=== PATIENT | male | born 1970 | race Caucasian/White ===

== ENCOUNTER → 2020-07-01 10:42 | Outpatient (BNVA) | payer SELFPAY | PROVIDERS: Family Provider Nurse Practitioner; PCP Nurse Practitioner; Visit Provider Family Medicine Adult Medicine | DX: E03.9 Hypothyroidism, unspecified (principal); K21.9 Gastro-esophageal reflux disease without esophagitis; I10 Essential (primary) hypertension; F41.1 Generalized anxiety disorder; Z12.11 Encounter for screening for malignant neoplasm of colon | CPT/HCPCS: 80053; 80061; 82272; 84443; 85025 ==

== ENCOUNTER 2021-01-27 10:23 | Outpatient (CLI) | payer OTHER, SELFPAY ==
--- NOTE | 2021-01-27 10:45 | XR_ITS ---
WS: [id number] LUMBAR SPINE: 3 VIEWS TECHNIQUE: AP, lateral and L5-S1 spot. HISTORY: Low back pain COMPARISON: 10/12/2016 L4 anterolisthesis by 2 mm. No fracture. Severe arthritis at the facet joints bilaterally at L4-5 and L5-S1. Partial sacralization of L5 on the RIGHT. No loss of disc space or vertebral body height. SI joints are symmetric bilaterally. No soft tissue abnormalities. XR/XR lumbar spine 2-3V* [id number] IMPRESSION: 1. 2 mm anterolisthesis of L4 is new since 2017. 2. Severe bilateral facet joint arthritis L4-5 and L5-S1 has progressed since 2017.
== END 2021-01-27 10:24 | disposition home or self-care (01) ==
PROVIDERS: PCP Family Medicine Adult Medicine; Visit Provider Family Medicine Adult Medicine
DX: M54.5 Low back pain (principal); M47.816 Spondylosis without myelopathy or radiculopathy, lumbar region; M47.817 Spondylosis without myelopathy or radiculopathy, lumbosacral region
CPT/HCPCS: 72100

== ENCOUNTER → 2021-02-06 08:25 | Outpatient (BNVA) | payer OTHER, SELFPAY | PROVIDERS: PCP Family Medicine Adult Medicine; Referring Provider Family Medicine Adult Medicine; Visit Provider Orthopaedic Surgery | DX: M54.41 Lumbago with sciatica, right side (principal); M54.42 Lumbago with sciatica, left side; G89.29 Other chronic pain; M48.061 Spinal stenosis, lumbar region without neurogenic claudication | CPT/HCPCS: 72120 ==

== ENCOUNTER 2021-03-04 14:54 | Outpatient (CLI) | payer OTHER, SELFPAY ==
--- NOTE | 2021-03-04 15:15 | MR_ITS ---
WS: [id number] MRI LUMBAR SPINE NONCONTRAST TECHNIQUE: Sagittal T1, T2 and STIR imaging. Axial T1 and T2 imaging. CLINICAL INFORMATION: M48.061 - Spinal stenosis, lumbar region without neurogen... COMPARISON: MRI FINDINGS: Mild lumbar curve. No acute compression. No high-grade central canal stenosis. S1 is lumbarized. L1-L2: Mild annular bulging. Spinal canal and foramen are patent. L2-L3: Mild annular bulging with slight effacement of ventral thecal sac. Mild facet arthropathy. Spi nal canal and foramen are patent. L3-L4: Mild annular bulging with slight effacement of the ventral thecal sac. Slight narrowing of the right subarticular recess. Mild right and no significant left foraminal narrowing. Mild facet arthro mai. L4-L5: Mild annular bulging with slight effacement of the ventral thecal sac. Moderate facet arthropa thy ligamentum flavum hypertrophy. Mild right and no significant left foraminal narrowing. L5-S1: Mild annular bulging. Moderate facet arthropathy. Slight effacement of ventral thecal sac. Mil d right and no significant left foraminal narrowing. S1-S2: Mild disc bulging with osteophytic ridging. Right eccentric annular tear. Mild facet arthropat hy. Spinal canal and foramen are patent. S1 is lumbarized Disc space narrowing at L5-S1 has progressed slightly compared to previous. No other significant billings ges compared to 2017. MR/MR lumbar spine wo con* [id number] IMPRESSION: 1. S1 is lumbarized. Recommend plain film correlation prior to surgical interv ention. 2. No significant central canal stenosis. 3. Mild annular bulging L4-5 with slight narrowing of the right subarticular r ecess and mild right L4-5 foraminal narrowing. 4. Right eccentric disc bulge L5-S1 with mild right L5-S1 foraminal narrowing. 5. Mild right L3-4 foraminal narrowing. 6. Moderate facet arthropathy L4-L5 and L5-S1.
== END 2021-03-04 14:55 | disposition home or self-care (01) ==
PROVIDERS: PCP Family Medicine Adult Medicine; Visit Provider Orthopaedic Surgery
DX: M48.061 Spinal stenosis, lumbar region without neurogenic claudication (principal); M47.816 Spondylosis without myelopathy or radiculopathy, lumbar region; M47.817 Spondylosis without myelopathy or radiculopathy, lumbosacral region; Q76.49 Other congenital malformations of spine, not associated with scoliosis
CPT/HCPCS: 72148

== ENCOUNTER 2021-03-23 20:47 | Emergency (ER) | payer OTHER, SELFPAY ==
[2021-03-23 21:49] VITALS: BP 158/89; PULSE 88; RESP 20; TEMP 36.6; O2SAT 98; BMI 33.3
[2021-03-23 22:15] LABS: Rapid Strep A Test Negative (Negative)
[2021-03-23 22:25] LABS: SARS Covid-2 Antigen Negative (Negative)
--- NOTE | 2021-03-24 01:36 | ED_ITS ---
HPI - General Adult General: Chief complaint: General Medical Stated complaint: SCRATCHY THROAT, COUGH Time Seen by Provider: 03/24/21 01:36 History of Present Illness: HPI narrative: Patient is a 50-year-old male who comes to the ED with sore throat and cough. Symptoms started approximately 3 days ago. He reports having a lot of nasal congestion and drainage and sinus pain. Denies any fevers, nausea/vomiting, bladder or bowel symptoms. Associated symptoms: Deny chest pain, dyspnea, headache(s), nausea, rash, palpitations or vomiting Review of Systems Const: Denies: fever(s), chills or fatigue Eyes: Denies: change in vision or eye discomfort ENMT: Reports: throat pain, nasal discharge, nasal congestion and sinus pain (Maxillary sinus pain); Denies: odynophagia Card: Denies: chest pain, palpitations, edema, swelling of feet/ankles, dyspnea on exertion or orthopnea Resp: Reports: non-productive cough; Denies: dyspnea or productive cough GI: Denies: abdominal pain, nausea, vomiting, diarrhea, constipation or hematochezia : Denies: flank pain, difficulty urinating, dysuria or hematuria Musc: Denies: neck pain, back pain or extremity swelling Skin/Breast: Denies: rash or new lesions Neuro: Denies: headache(s), numbness in extremities or weakness in extremities PFSH ED PFSH: Medical History Chronic low back pain with bilateral sciatica Colon cancer screening GERD (gastroesophageal reflux disease) HTN (hypertension), benign Hx of fracture of fibula Hx of fracture of tibia Hypothyroidism Obesity (BMI 30.0-34.9) Osteoarthritis involving multiple joints on both sides of body Family History Other Cancer Social History Smoking and tobacco status: former smoker Quit status (tobacco): has quit using tobacco Year quit tobacco: 15 yrs Second hand smoke exposure: No Smoking risk assessment/counseling performed?: No Alcohol intake: never Current occupational status: employed Physical Exam Const: COMMON NORMALS: no acute distress, patient oriented x3 and alert GENERAL APPEARANCE: cooperative and comfortable HENMT: COMMON NORMALS: normocephalic HEAD & SCALP: normocephalic FACE & SINUS: sinus tenderness frontal (Bilateral tenderness) and maxillary (Bilateral tenderness) MOUTH: Normal oral and palatal mucosa present THROAT: posterior oropharynx normal and uvula midline Neck/C-Spine: COMMON NORMALS: supple GENERAL: Yes normal visual inspection Resp: COMMON NORMALS: normal respiratory effort, No retractions, No use of accessory muscles and clear to auscultation bilaterally AUSCULTATION: clear to auscultation bilaterally Cardio: COMMON NORMALS: regular rate, regular rhythm, S1 normal heart sound present, S2 normal heart sound present, No gallops present (Cardio), No clicks present (Cardio), No murmurs present (Cardio) and Peripheral pulses 2+ throughout RATE: regular rate RHYTHM: regular rhythm HEART SOUNDS: S1 normal heart sound present and S2 normal heart sound present PERIPHERAL PULSES: Peripheral pulses 2+ throughout GI: COMMON NORMALS: Normal to inspection, nondistended, normoactive bowel sounds present, Soft to palpation, non-tender and no masses PALPATION: Yes Soft to palpation : COMMON NORMALS: Yes no CVA tenderness BLADDER/KIDNEY EXAM: Yes no CVA tenderness Back/Pelvis: COMMON NORMALS: no CVA tenderness Extremity: COMMON NORMALS: normal to inspection Neuro: COMMON NORMALS: patient oriented x3 and moves all extremities SENSORIUM/ORIENTATION: Yes alert Skin: GENERAL SKIN EXAM: dry skin Course Vital Signs: Vital signs: Vital Signs Temperature 98 F 03/23/21 21:49 Pulse Rate 88 03/24/21 02:46 Respiratory Rate 18 03/24/21 02:46 Blood Pressure 150/90 03/24/21 02:46 Pulse Oximetry 99 03/24/21 02:46 MDM - General Adult MDM Narrative: Medical decision making narrative: Patient is a 50-year-old male comes to the ED with cough, sore throat, sinus drainage, pain and nasal drainage and congestion. Patient appears nontoxic and is in no acute distress or pain. Vitals are stable. Patient has bilateral maxillary, frontal tenderness. Lungs are clear to auscultation bilaterally. Chest x-ray shows no acute findings. Strep negative and COVID-19 negative. Patient diagnosed with sinusitis discharged home with a prescription for Medrol Dosepak, amoxicillin and Afrin nasal spray. He was told to follow-up with his PCP in 7 to 10 days for reevaluation. Return to ED precautions given. Patient understood and agreed with plan. Lab Data: Attestation: I reviewed the patient's lab results. Labs: Lab Results 03/23/21 03/23/21 Range/Units 21:58 21:58 SARS-CoV-2 Ag (Rap id) Negative (Negative) Group A Strep Rapi d Negative (Negative) Imaging Data^: CXR: Attestation: I personally reviewed and interpreted this imaging study as follows: Radiologist's impression: [address] [address]HCvy ReportSigned Patient: Sancho Fernandez SrUnit #: [id number]: 1970Ac ct#:[id number]/Sex: 50 / MADM Date: 03/23/21Loc: ERRoom/Bed:Attending Dr: Ordering Provider/Ordering MD: Franco Cherry Date of Service: 03/24/21 Procedure(s): XR chest 1V portable [id number] Accession Number(s): [id number] Report Number: [id number] PROCEDURE INFORMATION: Exam: XR Chest Exam date and time: 03/24/2021 1:38 AM Age: 50 years old Clinical indication: Cough TECHNIQUE: Imaging protocol: XR of the chest. Views: 1 view. COMPARISON: CR Chest 1 [place] [id number] 07/03/2019 9:47 AM FINDINGS: Lungs: Unremarkable. No consolidation. Pleural spaces: Unremarkable. No pleural effusion. No pneumothorax. Heart/Mediastinum: Unremarkable. No cardiomegaly. Bones/joints: Unremarkable. XR/XR chest 1V portable [id number] IMPRESSION: No significant abnormality. Dictated By:Gita Goodman By:Gita Goodman Date/Time:03/24/21813DD/ 1 Discharge Plan Discharge Patient Disposition: Home Clinical Impression: Sinusitis Qualifiers: Sinusitis location: maxillary Chronicity: acute Recurrence: non-recurrent Qualified Code(s): J01.00 - Acute maxillary sinusitis, unspecified Condition: Stable Prescriptions: New amoxicillin 500 mg tablet 500 mg PO BID 10 Days Qty: 20 RF: 0 Medrol (Vasu) 4 mg tablets,dose pack See Rx Instructions .ROUTE .COMPLEX Qty: 21 RF: 0 Afrin (oxymetazoline) 0.05 % mist 2 spray intranasal BID PRN (Reason: nasal congestion) 3 Days Qty: 15 RF: 0 No Action omeprazole 20 mg tablet,delayed release (DR/EC) 20 mg PO DAILY Qty: 30 RF: 5 sildenafil 25 mg tablet 25 mg PO DAILY PRN (Reason: sexual activity) Qty: 2 RF: 0 bupropion HCl [Wellbutrin XL] 150 mg tablet extended release 24 hr 150 mg PO QAM Qty: 30 RF: 2 hydrochlorothiazide 25 mg tablet 25 mg PO QAM Qty: 30 RF: 5 levothyroxine [Levo-T] 137 mcg tablet 137 mcg PO DAILY Qty: 30 RF: 11 prednisone 20 mg tablet 20 mg PO DAILY Qty: 15 RF: 0 diphenhydramine-acetaminophen [Tylenol PM Extra Strength] 25-500 mg tablet 2 tab PO .HS PRNRF: 0 acetaminophen [Tylenol Extra Strength] 500 mg tablet 1,000 mg PO .bedtime RF: 0 multivitamin [Multiple Vitamins] Tablet 1 tab PO QAM RF: 0 Discharge Orders: Discharge ED (Routine); Ordered 03/24/21 Ordered By: Franco Cherry Referrals: Jerardo Hutchison MD [Primary Care Provider] - Discharge Diet: Regular Discharge Activity: Increase activity as tolerated Patient Instructions: Sinusitis (ED) Activity Restrictions/Additional Instructions: Follow-up with medical provider as directed in 7 to 10 days reevaluation. Take medications as prescribed. Return to the ER or your medical provider if condition worsens. Please read and understand discharge instructions. Thank you for choosing [facility] for your healthcare needs today. Please realize this is an emergency room and that we are providing you with a medical screening exam and this may not be complete and all inclusive of all the testing and or work up that you may need to determine your ailment or severity of your illness. It is very important that you follow up as instructed or that you return to the Emergency Department should you have concerns or if your condition changes or worsens in any way. 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
--- NOTE | 2021-03-24 01:38 | XRR_ITS ---
PROCEDURE INFORMATION: Exam: XR Chest Exam date and time: 03/24/2021 1:38 AM Age: 50 years old Clinical indication: Cough TECHNIQUE: Imaging protocol: XR of the chest. Views: 1 view. COMPARISON: CR Chest 1 [place] [id number] 07/03/2019 9:47 AM FINDINGS: Lungs: Unremarkable. No consolidation. Pleural spaces: Unremarkable. No pleural effusion. No pneumothorax. Heart/Mediastinum: Unremarkable. No cardiomegaly. Bones/joints: Unremarkable. XR/XR chest 1V portable [id number] IMPRESSION: No significant abnormality.
[2021-03-24 02:46] VITALS: BP 150/90; PULSE 88; RESP 18; O2SAT 99
== END 2021-03-24 02:35 | disposition home or self-care (01) ==
PROVIDERS: Emergency Medicine; Emergency Provider Physician Assistant; PCP Family Medicine Adult Medicine
DX: J01.00 Acute maxillary sinusitis, unspecified (principal); Z87.891 Personal history of nicotine dependence
CPT/HCPCS: 71045; 87081; 87426; 87880; 99282

== ENCOUNTER → 2021-03-31 10:04 | Outpatient (BNVA) | payer OTHER, SELFPAY | PROVIDERS: PCP Family Medicine Adult Medicine; Referring Provider Orthopaedic Surgery; Visit Provider Anesthesiology Pain Medicine | DX: G89.29 Other chronic pain (principal); M54.41 Lumbago with sciatica, right side; M54.42 Lumbago with sciatica, left side; M47.816 Spondylosis without myelopathy or radiculopathy, lumbar region; M51.36 Other intervertebral disc degeneration, lumbar region; M79.605 Pain in left leg; M79.673 Pain in unspecified foot; Z87.891 Personal history of nicotine dependence | CPT/HCPCS: 87491; 87591; 87661; 99204 ==

== ENCOUNTER → 2021-04-14 13:47 | Outpatient (BNVA) | payer OTHER, SELFPAY | PROVIDERS: PCP Family Medicine Adult Medicine; Visit Provider Anesthesiology Pain Medicine | DX: G89.29 Other chronic pain (principal); M47.816 Spondylosis without myelopathy or radiculopathy, lumbar region; M54.41 Lumbago with sciatica, right side; M54.42 Lumbago with sciatica, left side; Z87.891 Personal history of nicotine dependence | CPT/HCPCS: 64493; 64494; 64495; J3490 ==

== ENCOUNTER → 2021-04-21 11:24 | Outpatient (BNVA) | payer OTHER, SELFPAY | PROVIDERS: PCP Family Medicine Adult Medicine; Visit Provider Family Medicine Adult Medicine | DX: Z00.00 Encounter for general adult medical examination without abnormal findings (principal); E03.9 Hypothyroidism, unspecified; I10 Essential (primary) hypertension; E66.9 Obesity, unspecified; J44.9 Chronic obstructive pulmonary disease, unspecified; J45.909 Unspecified asthma, uncomplicated; F41.1 Generalized anxiety disorder; F33.1 Major depressive disorder, recurrent, moderate; K21.9 Gastro-esophageal reflux disease without esophagitis; M15.9 Polyosteoarthritis, unspecified; D75.1 Secondary polycythemia; R73.03 Prediabetes | CPT/HCPCS: 80053; 83036; 84153; 84443; 85025 ==

== ENCOUNTER → 2021-04-30 08:38 | Outpatient (BNVA) | payer OTHER, SELFPAY | PROVIDERS: PCP Family Medicine Adult Medicine; Visit Provider Anesthesiology Pain Medicine | DX: G89.29 Other chronic pain (principal); M54.41 Lumbago with sciatica, right side; M54.42 Lumbago with sciatica, left side; M47.816 Spondylosis without myelopathy or radiculopathy, lumbar region; M51.36 Other intervertebral disc degeneration, lumbar region; M79.605 Pain in left leg; M79.672 Pain in left foot | CPT/HCPCS: 82668; 83550; 85025; 99214 ==

== ENCOUNTER 2021-05-09 12:50 | Outpatient (CLI) | payer OTHER, SELFPAY ==
--- NOTE | 2021-05-09 13:00 | XR_ITS ---
WS: [id number] Exam: XR chest 2V* [id number] Date/Time of Exam: 05/09/2021 12:53 PM Reason For Exam: SOB Comparison 03/24/2021 Findings: The lungs are clear and fully expanded. Costophrenic angles are sharp. No infiltrates. Bronchovascula r relief appears normal. Cardiac silhouette is unremarkable. Bony elements are intact. XR/XR chest 2V* [id number] IMPRESSION: Unremarkable chest radiograph.
== END 2021-05-09 12:51 | disposition home or self-care (01) ==
PROVIDERS: PCP Family Medicine Adult Medicine; Visit Provider Family Medicine Adult Medicine
DX: R06.02 Shortness of breath (principal)
CPT/HCPCS: 71046

== ENCOUNTER 2021-05-24 17:05 | Emergency (ER) | payer OTHER, SELFPAY ==
[2021-05-24 17:10] VITALS: BP 156/102; PULSE 96; RESP 18; TEMP 36.3; O2SAT 97; BMI 33.3
[2021-05-24 17:16] VITALS: O2SAT 97
--- NOTE | 2021-05-24 17:42 | W.ED.COVID ---
HPI - COVID General: Chief Complaint: COVID symptoms Stated Complaint: H/A: COVID EXPOSURE Time Seen by Provider: 05/24/21 17:20 Triage information: No fever, cough or shortness of breath. Exposure to COVID + person last 14 days History of Present Illness: HPI Narrative: 80-year-old male presents emergency room with complaint of cough headache some mild nausea and myalgias. He was exposed to Covid from a family member within the last week. He has not had any shortness of breath or diarrhea no anosmia. MD complaint: reported COVID exposure Prior covid testing: no COVID 19 common symptoms: positive cough, non-productive cough, fatigue, body aches, throat pain and nasal congestion; negative nausea, vomiting or diarrhea COVID 19 other sytmptoms: negative chest pain or requiring oxygen Onset (ago): hour(s) Severity: mild Pertinent comorbid conditions: obesity Treatment prior to arrival: none COVID Results: SARS-CoV-2 Antigen (Rapid) Negative (Negative) 03/23/21 21:58 03/23/21 Review of Systems Const: Reports: body aches and fatigue ENMT: Reports: throat pain and nasal congestion Card: Denies: chest pain, edema, dyspnea on exertion or orthopnea Resp: Reports: non-productive cough GI: Denies: abdominal pain, nausea, vomiting, hematemesis, coffee ground emesis, diarrhea, constipation, bloating, hematochezia or melena : Denies: flank pain, dysuria, urinary frequency or urinary urgency Skin/Breast: Denies: rash or pruritus [facility] ED PFSH: Medical History Chronic dyspnea Chronic low back pain with bilateral sciatica Colon cancer screening Elevated red blood cell count GERD (gastroesophageal reflux disease) Hemochromatosis HTN (hypertension), benign Hx of fracture of fibula Hx of fracture of tibia Hypothyroidism Obesity (BMI 30.0-34.9) Osteoarthritis involving multiple joints on both sides of body Polycythemia Pre-diabetes Reactive airway disease Well adult exam Family History Other Cancer Social History Quit status (tobacco): has quit using tobacco Year quit tobacco: 15 yrs Second hand smoke exposure: No Smoking risk assessment/counseling performed?: No Alcohol intake: never Current occupational status: employed History of recent travel: No Physical Exam Const: COMMON NORMALS: no acute distress GENERAL APPEARANCE: cooperative and comfortable ORIENTATION/CONSCIOUSNESS: Yes awake, Yes oriented to person, Yes oriented to place and Yes oriented to time HENMT: COMMON NORMALS: normocephalic, atraumatic and hearing grossly normal bilaterally HEAD & SCALP: normocephalic and atraumatic Neck/C-Spine: COMMON NORMALS: no JVD Resp: COMMON NORMALS: normal respiratory effort, No retractions, No use of accessory muscles and clear to auscultation bilaterally AUSCULTATION: clear to auscultation bilaterally Cardio: COMMON NORMALS: no JVD, regular rate, regular rhythm and No murmurs present (Cardio) RATE: regular rate RHYTHM: regular rhythm GI: COMMON NORMALS: Soft to palpation and No hepatosplenomegaly present AUSCULTATION: Yes normoactive bowel sounds PALPATION: Yes Soft to palpation, No Tenderness to palpation present (GI), No Guarding due to palpation present (GI) and Yes No hepatosplenomegaly present Extremity: COMMON NORMALS: normal to inspection, capillary refill normal, no clubbing, cyanosis or edema, no calf tenderness and no pedal edema Neuro: SENSORIUM/ORIENTATION: Yes oriented to person, Yes oriented to place and Yes oriented to time Skin: COMMON NORMALS: no rashes or lesions noted GENERAL SKIN EXAM: no rashes or lesions noted Course Vital Signs: Vital signs: Vital Signs Temperature 97.4 F L 05/24/21 17:10 Pulse Rate 96 05/24/21 17:10 Respiratory Rate 18 05/24/21 17:10 Blood Pressure 156/102 05/24/21 17:10 Pulse Oximetry 97 05/24/21 17:10 MDM - COVID MDM Narrative: Medical decision making narrative: Patient has very mild symptoms no sign of hypoxia we will get a Covid PCR test recommend remain self quarantine until results are available. COVID Results: SARS-CoV-2 Antigen (Rapid) Negative (Negative) 03/23/21 21:58 03/23/21 Discharge Plan Discharge Patient Disposition: Home Clinical Impression: Cough Condition: Stable Prescriptions: No Action levothyroxine [Levo-T] 137 mcg tablet 137 mcg PO DAILY Qty: 30 RF: 11 diphenhydramine-acetaminophen [Tylenol PM Extra Strength] 25-500 mg tablet 2 tab PO .HS PRNRF: 0 acetaminophen [Tylenol Extra Strength] 500 mg tablet 1,000 mg PO .bedtime RF: 0 multivitamin [Multiple Vitamins] Tablet 1 tab PO QAM RF: 0 albuterol sulfate 90 mcg/actuation HFA aerosol inhaler 2 puff inhalation Q6H PRN (Reason: shortness of breath or wheezing) Qty: 8.5 RF: 5 bupropion HCl [Wellbutrin XL] 150 mg tablet extended release 24 hr 150 mg PO QAM Qty: 30 RF: 5 hydrochlorothiazide 25 mg tablet 25 mg PO QAM Qty: 30 RF: 5 omeprazole 20 mg tablet,delayed release (DR/EC) 20 mg PO DAILY Qty: 30 RF: 5 tizanidine 4 mg tablet 4 mg PO BID PRN (Reason: muscle spasticity) Qty: 60 RF: 0 Discharge Orders: Discharge ED (Routine); Ordered 05/24/21 Ordered By: Kirit Asher Referrals: Jerardo Hutchison MD [Primary Care Provider] - Discharge Diet: Usual diet Discharge Activity: Resume usual activity Patient Instructions: Opioid Safety Coding Level of Care Code 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
== END 2021-05-24 17:55 | disposition home or self-care (01) ==
PROVIDERS: Emergency Provider Family Medicine; PCP Family Medicine Adult Medicine
DX: R05 Cough (principal); Z20.822 Contact with and (suspected) exposure to COVID-19; I10 Essential (primary) hypertension; F17.210 Nicotine dependence, cigarettes, uncomplicated
CPT/HCPCS: 99281

== ENCOUNTER 2021-05-26 16:23 | Outpatient (CLI) | payer OTHER, SELFPAY ==
[2021-05-26 16:43] LABS: Basophils # 0.1 10^3/uL (0.0-0.1); Eosinophils # 0.6 10^3/uL (0.0-0.8); Eosinophils % 7.6 %; Hematocrit 53.9 % (42.0-52.0); Hemoglobin 18.1 g/dL (11.7-16.6); Lymphocytes # 2.5 10^3/uL (0.8-4.8); Lymphocytes % 30.4 %; Mean Corpuscular HGB Conc 33.6 g/dL (30.0-36.0); Mean Corpuscular Hemoglobin 29.6 pg (28.0-34.0); Mean Corpuscular Volume 88.2 fl (80-94); Mean Platelet Volume 8.7 fL (7.4-10.4); Monocytes # 0.9 10^3/uL (0.2-0.9); Monocytes % 10.8 %; Neutrophils # 4.16 10^3/uL (1.8-7.7); Nucleated Red Blood Cells % 0 %; Platelet Count 316 10^3/cmm (130-400); Red Blood Count 6.11 10^6/uL (4.1-5.3); Red Cell Distribution Width 13.6 % (12.1-15.1); White Blood Count 8.3 10^3/uL (4.0-10.0)
[2021-05-26 17:22] LABS: Ferritin 133 ng/mL (30-400)
[2021-05-28 13:08] LABS: Alpha 1 Antitrypsin 158 mg/dL (83-199)
[2021-05-28 17:52] LABS: Immunoglobulin E 850 kU/L (<OR=114)
[2021-05-30 19:57] LABS: Aspergillus Fumigatus, Igg Ab, 54.3 mg/L (<=102)
[2021-06-02 18:47] LABS: Alternaria Class 3; Bermuda Class 2; Cat Dander (E1) Ige 0.51 kU/L; Cat Dander Class 1; Common Ragweed (Short) (W1) Ig 4.88 kU/L; D. Farinae Class 3; Dermatophagoides Class 3; Dermatophagoides Farinae (D2) 3.85 kU/L; Dermatophagoides Pteronyssinus 5.97 kU/L; Dog Dander (E5) Ige 0.85 kU/L; Dog Dander Class 2; Elm (T8) Ige 5.04 kU/L; Elm Class 3; English Plantain (W9) Ige 2.48 kU/L; English Plantain Class 2; House Dust (Greer) (H1) Ige 1.37 kU/L; House Dust (Hollister- Stier) 1.38 kU/L; House Dust Class 2; Immunoglobulin E 747 kU/L (<OR=114); Johnson Grass (G10) Ige 2.64 kU/L; Johnson Grass Cl 2; June Grass Class 3; June Grass(Kentucky Blue) (G8) 9.51 kU/L; Lamb'S Quarters (Goose Foot) 1.67 kU/L; Lamb'S Quarters Class 2; Maple (Box Elder) (T1) Ige 1.68 kU/L; Maple Class 2; Meadow Fescue (G4) Ige 9.79 kU/L; Meadow Fescue Class 3; Mucor Racemosus Class 1; Oak (T7) Ige 2.48 kU/L; Oak Class 2; Orchard Grass (Cocksfoot) (G3) 7.61 kU/L; Penicillium Class 1; Penicillium Notatum (M1) Ige 0.58 kU/L; Perennial Rye Grass (G5) Ige 8.48 kU/L; Perennial Rye Grass Class 3; Ragweeed Class 3; Rough Marsh Elder (W16) Ige 1.44 kU/L; Rough Marsh Elder Class 2; Sweet Vernal Class 3; Sweet Vernal Grass (G1) Ige 8.16 kU/L; Timothy Grass (G6) Ige 7.48 kU/L; Timothy Grass Class 3
== END 2021-05-26 16:24 | disposition home or self-care (01) ==
LOC: LAB 16:26
PROVIDERS: PCP Family Medicine Adult Medicine; Visit Provider Internal Medicine Pulmonary Disease
DX: J45.909 Unspecified asthma, uncomplicated (principal); R06.09 Other forms of dyspnea; J44.9 Chronic obstructive pulmonary disease, unspecified
CPT/HCPCS: 36415; 82103; 82728; 82785; 85025; 86003

== ENCOUNTER 2021-07-22 08:47 | Outpatient (CLI) | payer OTHER, SELFPAY ==
--- NOTE | 2021-07-22 09:37 | XR_ITS ---
WS: [id number] HIPS BILATERAL TECHNIQUE: 4 views, AP and lateral CLINICAL INFORMATION: Bilateral hip pain COMPARISON: None. FINDINGS: Mild degenerative narrowing bilateral hips. No acute fractures. Normal anatomic alignment. Normal pub ic rami. Pelvic phleboliths.
--- NOTE | 2021-07-22 13:15 | XR_ITS ---
WS: [id number] HIPS BILATERAL TECHNIQUE: 4 views, AP and lateral CLINICAL INFORMATION: Bilateral hip pain COMPARISON: None. FINDINGS: Mild degenerative narrowing bilateral hips. No acute fractures. Normal anatomic alignment. Normal pub ic rami. Pelvic phleboliths. XR/XR hip BI 3-4V wo/w pel [id number] IMPRESSION: Mild degenerative narrowing both hips. No acute fractures. Tonnis classification LEFT: grade 2: small cysts in femoral head/acetabulum or moderate joint space narrowing or moderate loss of head sphericity Tonnis classification RIGHT: grade 2: small cysts in femoral head/acetabulum or moderate joint space narrowing or moderate loss of head sphericity
== END 2021-07-22 08:48 | disposition home or self-care (01) ==
PROVIDERS: PCP Family Medicine Adult Medicine; Visit Provider Family Medicine Adult Medicine
DX: M25.551 Pain in right hip (principal); M25.552 Pain in left hip
CPT/HCPCS: 73521; 73522

== ENCOUNTER → 2021-09-10 10:32 | Outpatient (BNVA) | payer OTHER, SELFPAY | PROVIDERS: PCP Family Medicine Adult Medicine; Visit Provider Registered Nurse Neonatal Intensive Care | DX: Z20.822 Contact with and (suspected) exposure to COVID-19 (principal) | CPT/HCPCS: 87635 ==

== ENCOUNTER 2021-09-18 07:32 | Outpatient (CLI) | payer OTHER, SELFPAY ==
[2021-09-18 08:03] VITALS: BP 152/97; PULSE 101; RESP 18; TEMP 36.7; O2SAT 96; BMI 33.3
[2021-09-18 08:16] VITALS: BP 140/99; PULSE 95; RESP 17; TEMP 36.7; O2SAT 93
[2021-09-18 09:16] VITALS: BP 139/98; PULSE 93; RESP 17; TEMP 36.8; O2SAT 95
== END 2021-09-18 07:33 | disposition home or self-care (01) ==
LOC: OPS 07:33
PROVIDERS: PCP Family Medicine Adult Medicine; Visit Provider Nurse Practitioner Family
DX: U07.1 COVID-19 (principal)
CPT/HCPCS: 96365

== ENCOUNTER → 2021-10-28 15:03 | Outpatient (BNVA) | payer MEDICAID, SELFPAY | PROVIDERS: PCP Family Medicine Adult Medicine; Referring Provider Family Medicine Adult Medicine; Visit Provider Orthopaedic Surgery | DX: M25.551 Pain in right hip (principal); M25.552 Pain in left hip | CPT/HCPCS: 73523 ==

== ENCOUNTER → 2021-11-24 10:09 | Outpatient (BNVA) | payer MEDICAID, SELFPAY | PROVIDERS: PCP Family Medicine Adult Medicine; Visit Provider Psychiatry & Neurology Psychiatry | DX: F41.1 Generalized anxiety disorder (principal); F33.1 Major depressive disorder, recurrent, moderate | CPT/HCPCS: 99214 ==

== ENCOUNTER → 2022-01-20 07:38 | Outpatient (BNVA) | payer MEDICAID, SELFPAY | PROVIDERS: PCP Family Medicine Adult Medicine; Visit Provider Family Medicine Adult Medicine | DX: E03.9 Hypothyroidism, unspecified (principal); I10 Essential (primary) hypertension; R73.03 Prediabetes; D75.1 Secondary polycythemia; E66.9 Obesity, unspecified; J44.9 Chronic obstructive pulmonary disease, unspecified; M15.9 Polyosteoarthritis, unspecified; M54.41 Lumbago with sciatica, right side; M54.42 Lumbago with sciatica, left side; G89.29 Other chronic pain | CPT/HCPCS: 80053; 83036; 84443 ==

== ENCOUNTER 2022-02-10 18:01 | Emergency (ER) | payer MEDICAID, SELFPAY ==
[2022-02-10 18:05] VITALS: BP 138/104; PULSE 124; RESP 18; TEMP 36.5; O2SAT 96; BMI 33.3
--- NOTE | 2022-02-10 18:21 | ED_ITS ---
HPI - Trauma General: Chief Complaint: Trauma Stated Complaint: fall/ R leg scrap Time Seen by Provider: 02/10/22 18:11 Source: patient Mode of arrival: ambulatory Limitations: no limitations History of Present Illness: 51-year-old male states he just got a shower and fell through his bathroom floor states he has abrasions to his right hip rates his pain a 7 out of 10 he is unsure when his last tetanus was denies any other injuries he is able ambulate without any difficulty states pain is worse with palpation improved with rest. Associated symptoms: Denies abdominal pain, back pain, chest pain, chills, dental pain, fever(s), headache(s), nausea or vomiting Review of Systems Const: Denies: fever(s), chills, body aches or change in appetite Eyes: Denies: blurry vision or eye discomfort ENMT: Denies: throat pain or dental pain Card: Denies: chest pain Resp: Denies: dyspnea GI: Denies: abdominal pain, nausea, vomiting or diarrhea : Denies: dysuria Musc: Denies: neck pain or back pain Skin/Breast: Denies: rash Neuro: Denies: headache(s) Psych: Denies: depression Jassi/Lymph: Denies: easy bruising All/Imm: Denies: urticaria PFSH ED PFSH: Medical History Chronic dyspnea Chronic low back pain with bilateral sciatica COVID-19 Positive test on 09/10/2021. Degenerative lumbar disc Ex-smoker Quit in 2008 Facet arthropathy, lumbar Gastroenteritis GERD (gastroesophageal reflux disease) HTN (hypertension), benign Hx of fracture of fibula Hx of fracture of tibia Hypothyroidism Obesity (BMI 30.0-34.9) SHAYAN on CPAP Osteoarthritis involving multiple joints on both sides of body Polycythemia Pre-diabetes Psychiatric care Family History Other Cancer Social History Smoking and tobacco status: former smoker Quit status (tobacco): has quit using tobacco Year quit tobacco: 2006 yrs Former quit date comment: 2pp x 10 years Second hand smoke exposure: No Smoking risk assessment/counseling performed?: No Alcohol intake: never Current occupational status: employed History of recent travel: No Physical Exam Const: COMMON NORMALS: no acute distress, patient oriented x3 and healthy appearing HENMT: COMMON NORMALS: normocephalic and atraumatic HEAD & SCALP: normocephalic and atraumatic Eye: COMMON NORMALS: Equal, round and reactive pupils present and EOMs intact bilaterally PUPIL: Yes Equal, round and reactive pupils present Neck/C-Spine: COMMON NORMALS: full ROM and supple Chest: COMMONS NORMALS: normal inspection of the chest and normal palpation of entire chest wall Resp: COMMON NORMALS: normal respiratory effort, No retractions, No use of accessory muscles and clear to auscultation bilaterally AUSCULTATION: clear to auscultation bilaterally Cardio: COMMON NORMALS: regular rate, regular rhythm and No murmurs present (Cardio) RATE: regular rate RHYTHM: regular rhythm GI: COMMON NORMALS: Normal to inspection, nondistended, normoactive bowel sounds present, Soft to palpation, non-tender and no masses PALPATION: Yes Soft to palpation Extremity: COMMON NORMALS: full ROM Neuro: COMMON NORMALS: patient oriented x3, moves all extremities and no focal motor deficits Psych: COMMON NORMALS: mental status grossly normal, Normal thought process present and cooperative THOUGHT PROCESS: Normal thought process present Skin: NARRATIVE SKIN EXAM: Large abrasion to right hip no deep lacerations patient able ambulate no bony tenderness Course Vital Signs: Vital signs: Vital Signs Temperature 97.7 F 02/10/22 18:05 Pulse Rate 124 H 02/10/22 18:05 Respiratory Rate 18 02/10/22 18:05 Blood Pressure 138/104 02/10/22 18:05 Pulse Oximetry 96 02/10/22 18:05 MDM - Trauma Medical Decision Making Patient presents here with abrasions over his right hip from falling through the floor he is able ambulate no signs of fracture no lacerations that need repaired does have extensive abrasions will start on pain meds at home he is to follow-up with PCP and return if worsening. Discharge Plan Discharge Patient Disposition: Home Clinical Impression: Abrasion Condition: Stable Prescriptions: New hydrocodone-acetaminophen 5-325 mg tablet 1 tab PO Q6H PRN (Reason: pain) Qty: 8 0RF No Action hydrochlorothiazide 25 mg tablet 25 mg PO QAM Qty: 30 5RF meloxicam 15 mg tablet 15 mg PO DAILY Qty: 30 5RF famotidine 20 mg tablet 20 mg PO DAILY 0RF diphenhydramine-acetaminophen [Tylenol PM Extra Strength] 25-500 mg tablet 2 tab PO .HS PRN (Reason: Sleep) 0RF acetaminophen [Tylenol Extra Strength] 500 mg tablet 1,000 mg PO .bedtime 0RF multivitamin [Multiple Vitamins] Tablet 1 tab PO QAM 0RF hydroxyzine HCl 50 mg tablet 50 mg PO QID PRN (Reason: insomnia) Qty: 120 2RF bupropion HCl [Wellbutrin XL] 150 mg tablet extended release 24 hr 150 mg PO QAM Qty: 30 2RF albuterol sulfate 90 mcg/actuation HFA aerosol inhaler 2 puff inhalation Q4H PRN (Reason: shortness of breath or wheezing) 30 Days Qty: 17 2RF budesonide-formoterol [Symbicort] 80-4.5 mcg/actuation HFA aerosol inhaler 2 puff inhalation BID Qty: 10.2 5RF montelukast [Singulair] 10 mg tablet 10 mg PO DAILY Qty: 90 1RF tramadol 50 mg tablet 50 mg PO TID PRN (Reason: pain) 30 Days Qty: 90 2RF levothyroxine [Levo-T] 137 mcg tablet 137 mcg PO DAILY 30 Days Qty: 30 5RF Spiriva with HandiHaler 18 mcg capsule, w/inhalation device 1 cap inhalation DAILY Qty: 30 1RF Rx Instructions: puncture 1 cap using device; one dose = 2 inhalations Discharge Orders: Discharge ED (Routine); Ordered 02/10/22 Ordered By: Fawn Hurtado Referrals: Jerardo Hutchison MD [Primary Care Provider] - 1-3 days Discharge Diet: Advance as tolerated Discharge Activity: Resume usual activity Patient Instructions: Abrasion (ED), Opioid Safety Coding Level of Care Code 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
[2022-02-10] MEDS: HYDROcodone-acetaminophen 5-325 mg Tablet 1 TAB PO (18:34)
[2022-02-10] MEDS: tetanus-dipt-pertussis 0.5 mL SDV IM (18:34)
== END 2022-02-10 19:03 | disposition home or self-care (01) ==
PROVIDERS: Emergency Provider Emergency Medicine; PCP Family Medicine Adult Medicine
DX: S70.211A Abrasion, right hip, initial encounter (principal); W17.2XXA Fall into hole, initial encounter; Z23 Encounter for immunization
CPT/HCPCS: 90471; 90715; 99283

== ENCOUNTER → 2022-02-23 10:30 | Outpatient (BNVA) | payer MEDICAID, SELFPAY | PROVIDERS: PCP Family Medicine Adult Medicine; Visit Provider Psychiatry & Neurology Psychiatry | DX: F41.1 Generalized anxiety disorder (principal); F33.1 Major depressive disorder, recurrent, moderate | CPT/HCPCS: 99213 ==

== ENCOUNTER → 2022-04-21 07:23 | Outpatient (BNVA) | payer MEDICAID, SELFPAY | PROVIDERS: PCP Family Medicine Adult Medicine; Visit Provider Family Medicine Adult Medicine | DX: E03.9 Hypothyroidism, unspecified (principal); I10 Essential (primary) hypertension; R73.03 Prediabetes; D75.1 Secondary polycythemia; E66.9 Obesity, unspecified; J44.9 Chronic obstructive pulmonary disease, unspecified; M15.9 Polyosteoarthritis, unspecified; M54.41 Lumbago with sciatica, right side; M54.42 Lumbago with sciatica, left side; G89.29 Other chronic pain | CPT/HCPCS: 84443 ==

== ENCOUNTER → 2022-07-21 07:50 | Outpatient (BNVA) | payer MEDICAID, SELFPAY | PROVIDERS: PCP Family Medicine Adult Medicine; Visit Provider Family Medicine Adult Medicine | DX: E03.9 Hypothyroidism, unspecified (principal); R37 Sexual dysfunction, unspecified; R73.03 Prediabetes; I10 Essential (primary) hypertension; R94.4 Abnormal results of kidney function studies; D75.1 Secondary polycythemia | CPT/HCPCS: 80053; 82040; 83036; 84270; 84403; 84443; 85025 ==

== ENCOUNTER → 2022-12-10 08:41 | Outpatient (BNVA) | payer MEDICAID, SELFPAY | PROVIDERS: PCP Family Medicine Adult Medicine; Visit Provider Family Medicine Adult Medicine | DX: I10 Essential (primary) hypertension (principal); Z80.0 Family history of malignant neoplasm of digestive organs; Z98.890 Other specified postprocedural states; Z86.010 Personal history of colon polyps; E03.9 Hypothyroidism, unspecified; R73.03 Prediabetes | CPT/HCPCS: 80048; 80061; 82378; 84443; 85025 ==

== ENCOUNTER → 2023-11-11 07:49 | Outpatient (BNVA) | payer MEDICAID, SELFPAY | PROVIDERS: PCP Family Medicine Adult Medicine; Visit Provider Family Medicine Adult Medicine | DX: I10 Essential (primary) hypertension (principal); E03.9 Hypothyroidism, unspecified | CPT/HCPCS: 80053; 80061; 84443; 85025 ==

== ENCOUNTER → 2023-11-29 09:48 | Outpatient (BNVA) | payer MEDICAID, SELFPAY | PROVIDERS: PCP Family Medicine Adult Medicine; Visit Provider Specialist | DX: M25.551 Pain in right hip (principal); M25.552 Pain in left hip; G89.29 Other chronic pain | CPT/HCPCS: 73523 ==

== ENCOUNTER 2024-01-06 06:57 | Outpatient (CLI) | payer MEDICAID, SELFPAY ==
--- NOTE | 2024-01-06 07:15 | MR_ITS ---
WS: [id number] EXAMINATION: MR hip LT wo con* [id number] ORDER DATE: 01/06/2024 7:08 AM COMPARISON: None. HISTORY: hip pain CONTRAST: None. TECHNIQUE: Coronal STIR of the Pelvis. Coronal proton density, coronal T1, axial T2 fat sat, axial T1 , sagittal T2 fat sat, and sagittal T1 performed of the hip. FINDINGS: Mild to moderate degenerative changes LEFT hip. No acute fractures. Normal LEFT femoral head and neck . No evidence of avascular necrosis. Mild hypertrophic changes about the acetabulum. No significant j oint effusion. Normal bone marrow signal in the acetabulum. Normal visualized LEFT sacroiliac joint. Mild joint space narrowing RIGHT hip. Normal bone marrow signal in the bony pelvis and sacrum. Normal visualized soft tissues. Normal pubic rami. Small amount of fluid and edema along the LEFT greater trochanter compatible with mild trochanteric b ursitis. No other acute findings. IMPRESSION: 1. Mild to moderate degenerative changes LEFT hip with hypertrophic changes about the acetabulum. No rmal bone marrow signal. 2. No evidence of avascular necrosis. 3. Mild trochanteric bursitis LEFT hip. 4. Normal bone marrow signal in the pelvis and sacrum.
== END 2024-01-06 06:58 | disposition home or self-care (01) ==
LOC: RAD 06:57
PROVIDERS: PCP Family Medicine Adult Medicine; Visit Provider Specialist
DX: M71.552 Other bursitis, not elsewhere classified, left hip (principal); M24.852 Other specific joint derangements of left hip, not elsewhere classified
CPT/HCPCS: 73721

== ENCOUNTER 2024-09-02 14:10 | Emergency (ER) | payer MEDICAID, SELFPAY ==
[2024-09-02 14:37] VITALS: BP 142/90; PULSE 82; RESP 18; TEMP 36.7; O2SAT 96; BMI 35.9
[2024-09-02 16:28] LABS: Basophils # 0.1 10^3/uL (0.0-0.1); Basophils % 1.1 %; Eosinophils # 0.5 10^3/uL (0.0-0.8); Eosinophils % 8.1 %; Hematocrit 47.8 % (37-53); Lymphocytes # 1.9 10^3/uL (0.8-4.8); Lymphocytes % 29.3 %; Mean Corpuscular Hemoglobin 26.7 pg (27-33); Mean Corpuscular Volume 83.4 fl (82-101); Mean Platelet Volume 8.6 fL (7.4-10.4); Monocytes # 0.6 10^3/uL (0.2-0.9); Monocytes % 8.9 %; Neutrophils % 52.3 %; Nucleated Red Blood Cells % 0 %; Platelet Count 261 10^3/cmm (157-399); Red Blood Count 5.73 10^6/uL (3.85-5.65); Red Cell Distribution Width 14.4 % (12.1-15.1); White Blood Count 6.51 10^3/uL (3.29-11.43)
--- NOTE | 2024-09-02 16:44 | W.ED.GENADLT ---
HPI - General Adult General: Chief complaint: Airway/Esophagus Foreign Body Stated complaint: Something caught in throat Time Seen by Provider: 09/02/24 15:16 History of Present Illness: 54-year-old male presents emergency room with complaint of globus sensation. He was eating some chicken when he worked at [employer] it got stuck in his throat for period time he was never unable to breathe but he felt like he could not swallow for but eventually was able to swallow down he still is a uncomfortable sensation in his throat has no difficulty swallowing or speaking. He never actually choked or felt like he was unable to breathe or swallow. Associated symptoms: Deny chest pain or dyspnea Related Data Previous Rx's Medication Instructions Recorded guaifenesin 600 mg tablet, 600 mg PO BID help breathing #60 08/27/23 extended release 12 hr tabs hydrochlorothiazide 25 mg tablet 25 mg PO QAM #90 tabs 08/27/23 albuterol sulfate 90 mcg/actuation 2 puff inhalation Q4H PRN 05/11/24 aerosol inhaler shortness of breath or wheezing 90 days #42.5 grams famotidine 20 mg tablet See Rx Instructions .Route 05/11/24 .COMPLEX #90 tabs gabapentin 800 mg tablet 600 mg (0.75 x 800 mg) PO TID 05/11/24 nerve pain #90 tabs ibuprofen 800 mg tablet 800 mg PO Q8H PRN pain #90 tabs 05/11/24 levothyroxine 175 mcg tablet 175 mcg PO DAILY Low thyroid 05/11/24 (Levo-T) function #90 tabs lisinopril 10 mg tablet See Rx Instructions .Route 05/11/24 .COMPLEX #30 tabs loratadine 10 mg tablet 10 mg PO DAILY PRN drainage/cough 05/11/24 #90 tabs montelukast 10 mg tablet See Rx Instructions .Route 05/11/24 .COMPLEX #90 tabs potassium chloride 20 mEq 20 meq PO DAILY hypothkalemia #90 05/11/24 tablet,extended release tabs levalbuterol tartrate 45 2 inh inhalation Q6H #15 grams 05/12/24 mcg/actuation aerosol inhaler (Xopenex HFA) budesonide-formoterol HFA 80 2 puff inhalation BID breathing 90 05/17/24 mcg-4.5 mcg/actuation aerosol days #30.6 grams inhaler (Symbicort) ipratropium 20 mcg-albuterol 100 1 puff inhalation Q4H #4 grams 05/17/24 mcg/actuation mist for inhalation tiotropium bromide 18 mcg capsule 1 cap inhalation DAILY 90 days #60 05/17/24 with inhalation device (Spiriva inhalations with HandiHaler) tramadol 50 mg tablet 50 mg PO TID PRN pain #90 tabs 06/26/24 erythromycin 5 mg/gram (0.5 %) eye 1 applic ophthalmic (eye) QID 7 07/12/24 ointment (3.5 gram tube) days #3.5 grams bupropion HCl 150 mg 24 hr tablet, 300 mg (2 x 150 mg) PO QAM Mental 08/03/24 extended release (Wellbutrin XL) health #180 tabs buspirone 10 mg tablet 20 mg (2 x 10 mg) PO TID #540 tabs 08/03/24 hydroxyzine HCl 50 mg tablet 50 mg PO QID PRN anxiety/insomnia 08/03/24 #360 tabs mirtazapine 15 mg tablet 15 mg PO .HS #90 tabs 08/03/24 propranolol 20 mg tablet 20 mg PO BID PRN anxiety #60 tabs 08/03/24 sertraline 100 mg tablet (Zoloft) 100 mg PO DAILY #30 tabs 08/03/24 Allergies Allergy/AdvReac Type Severity Reaction Status Date / Time No Known Allergies Allergy Verified 08/03/24 10:13 Review of Systems Card: Denies: chest pain Resp: Denies: dyspnea GI: Denies: abdominal pain [facility] ED PFSH: Medical History Chronic hip pain, bilateral Pre-diabetes Sciatica neuralgia Family history of malignant neoplasm of rectum Hearing loss Hypokalemia Sexual dysfunction Constipation by delayed colonic transit Burning sensation of feet SHAYAN on CPAP Psychiatric care Polycythemia secondary to hypoxia Ex-smoker Quit in 2008 Degenerative lumbar disc Facet arthropathy, lumbar Osteoarthritis involving multiple joints on both sides of body Chronic low back pain with bilateral sciatica Obesity (BMI 30.0-34.9) Hypothyroidism HTN (hypertension), benign GERD (gastroesophageal reflux disease) Surgical History History of colonoscopy with polypectomy ~2012 Colonoscopy poly removal Family History Other Cancer Social History Smoking and tobacco/nicotine status: unknown if used tobacco/nicotine Quit status (tobacco/nicotine): has quit using Year quit tobacco: 2006 yrs Former quit date comment: 2pp x 10 years Second hand smoke exposure: No Alcohol intake: former Year of sobriety/quit date alcohol: 2019 Substance/Drug Use: never Current occupational status: employed Physical Exam Const: COMMON NORMALS: no acute distress GENERAL APPEARANCE: cooperative and comfortable ORIENTATION/CONSCIOUSNESS: Yes awake, Yes oriented to person, Yes oriented to place and Yes oriented to time HENMT: COMMON NORMALS: normocephalic, atraumatic and hearing grossly normal bilaterally HEAD & SCALP: normocephalic and atraumatic Resp: COMMON NORMALS: normal respiratory effort, No retractions, No use of accessory muscles and clear to auscultation bilaterally AUSCULTATION: clear to auscultation bilaterally Cardio: COMMON NORMALS: regular rate, regular rhythm and No murmurs present (Cardio) RATE: regular rate RHYTHM: regular rhythm Extremity: COMMON NORMALS: normal to inspection, capillary refill normal, no clubbing, cyanosis or edema, no calf tenderness and no pedal edema Neuro: SENSORIUM/ORIENTATION: Yes oriented to person, Yes oriented to place and Yes oriented to time Skin: COMMON NORMALS: no rashes or lesions noted GENERAL SKIN EXAM: no rashes or lesions noted Course Vital Signs: Vital signs: Vital Signs Temperature 98.0 F 09/02/24 14:37 Pulse Rate 82 09/02/24 14:37 Respiratory Rate 18 09/02/24 14:37 Blood Pressure 142/90 09/02/24 14:37 Pulse Oximetry 96 09/02/24 14:37 Oxygen Delivery Me thod Room Air 09/02/24 14:37 MDM - General Adult Medical Decision Making No further intervention needed patient has cleared the obstruction and is not having any problems he still is a globus like sensation in his throat but no stridor no wheezing or rhonchi follow-up as needed Medical Records I reviewed the patient's medical records. Lab Data I reviewed the patient's lab results. 09/02/24 16:19 09/02/24 16:19 Laboratory Results WBC 6.51 10^3/uL (3.29-11.43) 09/02/24 16:19 RBC 5.73 10^6/uL (3.85-5.65) H 09/02/24 16:19 Hgb 15.30 g/dL (11.27-16.99) 09/02/24 16:19 Hct 47.8 % (37-53) 09/02/24 16:19 MCV 83.4 fl (82-101) 09/02/24 16:19 MCH 26.7 pg (27-33) L 09/02/24 16:19 MCHC 32.0 g/dL (30-55) 09/02/24 16:19 RDW 14.4 % (12.1-15.1) 09/02/24 16:19 Plt Count 261 10^3/cmm (157-399) 09/02/24 16:19 MPV 8.6 fL (7.4-10.4) 09/02/24 16:19 Neut % (Auto) 52.3 % 09/02/24 16:19 Lymph % (Auto) 29.3 % 09/02/24 16:19 [place] % (Auto) 8.9 % 09/02/24 16:19 Eos % (Auto) 8.1 % 09/02/24 16:19 Baso % (Auto) 1.1 % 09/02/24 16:19 Neut # (Auto) 3.40 10^3/uL (1.8-7.7) 09/02/24 16:19 Lymph # (Auto) 1.9 10^3/uL (0.8-4.8) 09/02/24 16:19 [place] # (Auto) 0.6 10^3/uL (0.2-0.9) 09/02/24 16:19 Eos # (Auto) 0.5 10^3/uL (0.0-0.8) 09/02/24 16:19 Baso # (Auto) 0.1 10^3/uL (0.0-0.1) 09/02/24 16:19 Nucleated RBC % (auto) 0 % 09/02/24 16:19 Nucleated RBCs # 0.0 /100WBC 09/02/24 16:19 Sodium 135 mmol/L (136-145) L 09/02/24 16:19 Potassium 4.7 mmol/L (3.5-5.1) 09/02/24 16:19 Chloride 101 mmol/L (98-107) 09/02/24 16:19 Carbon Dioxide 27 mmol/L (22-29) 09/02/24 16:19 Anion Gap 11.7 (5-19) 09/02/24 16:19 BUN 18 mg/dL (6-20) 09/02/24 16:19 Creatinine 1.3 mg/dL (0.7-1.2) H 09/02/24 16:19 GFR Calculation 57.1 mL/min (90-130) L 09/02/24 16:19 Glucose 111 mg/dL (65-115) 09/02/24 16:19 Calculated Osmolality 283 mOsm/kg (285-295) L 09/02/24 16:19 Calcium 9.6 mg/dL (8.5-10.5) 09/02/24 16:19 Total Bilirubin 0.4 mg/dL (0.15-1.2) 09/02/24 16:19 AST 29 U/L (0-40) 09/02/24 16:19 ALT 33 U/L (0-41) 09/02/24 16:19 Alkaline Phosphatase 82 U/L (40-130) 09/02/24 16:19 Total Protein 7.9 g/dL (6.6-8.7) 09/02/24 16:19 Albumin 4.5 g/dL (3.5-5.2) 09/02/24 16:19 Globulin 3.4 g/dL (1.3-4.6) 09/02/24 16:19 No radiology studies performed this visit Discharge Plan Discharge Patient Disposition: Home Clinical Impression: Globus sensation Condition: Stable Prescriptions: No Action guaifenesin 600 mg tablet extended release 12hr 600 mg PO BID Qty: 60 5RF hydrochlorothiazide 25 mg tablet 25 mg PO QAM Qty: 90 1RF albuterol sulfate 90 mcg/actuation HFA aerosol inhaler 2 puff inhalation Q4H PRN (Reason: shortness of breath or wheezing) 90 Days Qty: 42.5 1RF famotidine 20 mg tablet See Rx Instructions .ROUTE .COMPLEX Qty: 90 0RF Dose Instruction: TAKE 1 TABLET BY MOUTH ONCE DAILY FOR ACID REFLUX Rx Instructions: TAKE 1 TABLET BY MOUTH ONCE DAILY FOR ACID REFLUX ibuprofen 800 mg tablet 800 mg PO Q8H PRN (Reason: pain) Qty: 90 1RF levothyroxine [Levo-T] 175 mcg tablet 175 mcg PO DAILY Qty: 90 1RF lisinopril 10 mg tablet See Rx Instructions .ROUTE .COMPLEX Qty: 30 0RF Dose Instruction: Take 1 tablet by mouth once daily Rx Instructions: Take 1 tablet by mouth once daily loratadine 10 mg tablet 10 mg PO DAILY PRN (Reason: drainage/cough) Qty: 90 2RF montelukast 10 mg tablet See Rx Instructions .ROUTE .COMPLEX Qty: 90 0RF Dose Instruction: TAKE 1 TABLET BY MOUTH ONCE DAILY FOR BREATHING Rx Instructions: TAKE 1 TABLET BY MOUTH ONCE DAILY FOR BREATHING potassium chloride 20 mEq tablet extended release 20 meq PO DAILY Qty: 90 3RF levalbuterol tartrate [Xopenex HFA] 45 mcg/actuation HFA aerosol inhaler 2 inh inhalation Q6H Qty: 15 3RF sertraline [Zoloft] 100 mg tablet 100 mg PO DAILY Qty: 30 2RF Rx Instructions: Take 1/2 tab daily for 2 weeks then a a full tab bupropion HCl [Wellbutrin XL] 150 mg tablet extended release 24 hr 300 mg PO QAM Qty: 180 1RF buspirone 10 mg tablet 20 mg PO TID Qty: 540 1RF hydroxyzine HCl 50 mg tablet 50 mg PO QID PRN (Reason: anxiety/insomnia) Qty: 360 2RF mirtazapine 15 mg tablet 15 mg PO .HS Qty: 90 1RF propranolol 20 mg tablet 20 mg PO BID PRN (Reason: anxiety) Qty: 60 2RF tetracaine HCl 0.5 % drops 1 drp ophthalmic (eye) ONCE Qty: 5 0RF erythromycin 5 mg/gram (0.5 %) ointment 1 applic ophthalmic (eye) QID 7 Days Qty: 3.5 0RF gabapentin 800 mg tablet 600 mg PO TID Qty: 90 5RF budesonide-formoterol [Symbicort] 80-4.5 mcg/actuation HFA aerosol inhaler 2 puff inhalation BID 90 Days Qty: 30.6 1RF ipratropium-albuterol 20-100 mcg/actuation mist 1 puff inhalation Q4H Qty: 4 3RF tiotropium bromide [Spiriva with HandiHaler] 18 mcg capsule, w/inhalation device 1 cap inhalation DAILY 90 Days Qty: 60 2RF Rx Instructions: puncture 1 cap using device; one dose = 2 inhalations tramadol 50 mg tablet 50 mg PO TID PRN (Reason: pain) Qty: 90 2RF Rx Instructions: Refill on or after 30 day intervals Discharge Orders: Discharge ED (Routine); Ordered 09/02/24 Ordered By: Kirit Asher Referrals: Jerardo Hutchison MD [Primary Care Provider] - Discharge Diet: Usual diet Discharge Activity: Resume usual activity Patient Instructions: Opioid Safety, Pain Management Activity Restrictions/Additional Instructions: Thank you for choosing [facility] for your healthcare needs today. It is very important that you follow up as instructed or that you return to the Emergency Department should you have concerns or if your condition changes or worsens in any way. You are seen after an episode of having some meat stuck in your throat. It is clear your lungs sound clear and you are not having any difficulty with with swallowing or drinking or breathing now. No further care or interjections need to be done. Follow-up with your primary care doctor as needed. Be sure to chew your food thoroughly before swallowing. Coding Level of Care Code ED Bilingual Speech Language Pathologist for Bryce Segal
[2024-09-02 16:50] LABS: Alanine Aminotransferase 33 U/L (0-41); Albumin Level 4.5 g/dL (3.5-5.2); Alkaline Phosphatase 82 U/L (40-130); Anion Gap 11.7 (5-19); Aspartate Amino Transferase 29 U/L (0-40); Blood Urea Nitrogen 18 mg/dL (6-20); Calcium 9.6 mg/dL (8.5-10.5); Carbon Dioxide 27 mmol/L (22-29); Chloride 101 mmol/L (98-107); Creatinine Clr Calc Pharmacy 89.8534; Globulin 3.4 g/dL (1.3-4.6); Glomerular Filtration Rate 57.1 mL/min (90-130); Glucose 111 mg/dL (65-115); Osmolality Calculated 283 mOsm/kg (285-295); Potassium 4.7 mmol/L (3.5-5.1); Sodium 135 mmol/L (136-145); Total Bilirubin 0.4 mg/dL (0.15-1.2); Total Protein 7.9 g/dL (6.6-8.7)
[2024-09-02 17:04] VITALS: BP 127/90; PULSE 70; O2SAT 97
== END 2024-09-02 17:05 | disposition home or self-care (01) ==
PROVIDERS: Emergency Provider Family Medicine; PCP Family Medicine Adult Medicine
DX: R09.A2 Foreign body sensation, throat (principal); Z87.891 Personal history of nicotine dependence; I10 Essential (primary) hypertension
CPT/HCPCS: 80053; 85025; 99283

== ENCOUNTER → 2024-12-14 11:54 | Outpatient (BNVA) | payer MEDICAID, SELFPAY | PROVIDERS: PCP Family Medicine; Visit Provider Family Medicine | DX: M54.41 Lumbago with sciatica, right side (principal); M15.9 Polyosteoarthritis, unspecified; M54.42 Lumbago with sciatica, left side; G89.29 Other chronic pain; K21.9 Gastro-esophageal reflux disease without esophagitis; I10 Essential (primary) hypertension; E03.9 Hypothyroidism, unspecified; E66.9 Obesity, unspecified; J44.9 Chronic obstructive pulmonary disease, unspecified; E87.6 Hypokalemia | CPT/HCPCS: 80053; 80061; 83036; 84439; 84443; 85025 ==

== ENCOUNTER 2025-02-18 13:24 | Emergency (ER) | payer MEDICAID, SELFPAY ==
[2025-02-18 13:31] VITALS: BP 114/70; PULSE 68; RESP 16; TEMP 36.4; O2SAT 97; BMI 37.0
--- NOTE | 2025-02-18 13:37 | ECG_ITS ---
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 Measurements Intervals [place] Rate: 63 P: 56 ME: 179 QRS: 2 QRSD: 112 T: 52 QT: 419 QTc: 432 Interpretive Statements SINUS RHYTHM POSSIBLE LEFT ATRIAL ENLARGEMENT [-0.1mV P-WAVE IN V1/V2] INCOMPLETE RIGHT BUNDLE BRANCH BLOCK [90+ ms QRS DURATION, TERMINAL R IN V1/V2, 40+ ms S IN I/aVL/V4/V5/V6] Compared to ECG 07/03/2019 09:38:35 No significant changes Electronically Signed On 02-19-2025 08:58:44 CDT by Dick Hung M.D. [id number]
[2025-02-18 14:05] VITALS: PULSE 61; O2SAT 97
--- NOTE | 2025-02-18 14:19 | W.ED.NECK ---
HPI - Neck Pain/Injury General: Chief Complaint: Neck Pain/Injury Stated Complaint: intense joint pain, lightheadeded Time Seen by Provider: 02/18/25 14:13 History of Present Illness: 54-year-old male presents because he thinks he is dehydrated and also complains of some pain in the back of his neck. Patient reports that if he moves his head around pressure looking down he gets little dizzy. Patient also complains of some pain in the lateral aspect of his neck with movement. He reports that he works in an environment which he looks down a lot and thinks this irritated his neck. He denies any injury. Associated symptoms: Denies headache(s) or nausea Related Data Home Medications ?Medication ?Instructions ?Recorded ?Confirmed budesonide-formoterol HFA 80 2 puff inhalation BID PRN breathing 02/18/25 02/18/25 mcg-4.5 mcg/actuation aerosol inhaler (Symbicort) gabapentin 600 mg tablet 600 mg PO TID 02/18/25 02/18/25 lisinopril 10 mg tablet 10 mg PO DAILY 02/18/25 02/18/25 loratadine 10 mg tablet 10 mg PO DAILY PRN allergies 02/18/25 02/18/25 mirtazapine 15 mg tablet 15 mg PO BEDTIME 02/18/25 02/18/25 sertraline 100 mg tablet (Zoloft) 200 mg PO QAM 02/18/25 02/18/25 Previous Rx's ?Medication ?Instructions ?Recorded bupropion HCl 300 mg 24 hr tablet, 300 mg PO QAM #30 tabs 11/02/24 extended release (Wellbutrin XL) buspirone 10 mg tablet 20 mg (2 x 10 mg) PO TID #180 tabs 11/02/24 hydroxyzine HCl 50 mg tablet 50 mg PO QID PRN anxiety/insomnia 11/02/24 #120 tabs albuterol sulfate 90 mcg/actuation 2 puff inhalation Q4H PRN 12/14/24 aerosol inhaler shortness of breath or wheezing 90 days #42.5 grams famotidine 20 mg tablet 20 mg PO .qnightly #90 tabs 12/14/24 hydrochlorothiazide 25 mg tablet 25 mg PO QAM #90 tabs 12/14/24 montelukast 10 mg tablet 10 mg PO DAILY #90 tabs 12/14/24 potassium chloride 20 mEq 20 meq PO DAILY hypothkalemia #90 12/14/24 tablet,extended release tabs levothyroxine 175 mcg tablet 175 mcg PO DAILY Low thyroid 12/15/24 (Levo-T) function #90 tabs tramadol 50 mg tablet 50 mg PO TID PRN pain #90 tabs 01/17/25 propranolol 20 mg tablet 20 mg PO BID PRN anxiety #60 tabs 02/15/25 Allergies Allergy/AdvReac Type Severity Reaction Status Date / Time No Known Allergies Allergy Verified 02/08/25 10:31 Review of Systems Const: Reports: body aches Card: Reports: lightheadedness; Denies: chest pain or palpitations Resp: Denies: dyspnea or productive cough GI: Denies: abdominal pain, nausea or vomiting Musc: Reports: neck pain (Mainly left lateral and paraspinal, no vertebral tenderness. ) and other (Negative meningeal signs) Neuro: Denies: headache(s) or confusion PFSH ED PFSH: Medical History (Updated 02/18/25 @ 15:43 by James York DO) Psychiatric care Obesity (BMI 35.0-39.9 without comorbidity) CKD stage 3a, GFR 45-59 ml/min Chronic hip pain, bilateral Pre-diabetes Family history of malignant neoplasm of rectum Hearing loss Hypokalemia Sexual dysfunction Constipation by delayed colonic transit SHAYAN on CPAP Polycythemia secondary to hypoxia Ex-smoker Quit in 2008 Degenerative lumbar disc Osteoarthritis involving multiple joints on both sides of body Chronic low back pain with bilateral sciatica Obesity (BMI 30.0-34.9) Hypothyroidism HTN (hypertension), benign GERD (gastroesophageal reflux disease) Surgical History History of colonoscopy with polypectomy ~2012 Colonoscopy poly removal Family History Other Cancer Social History (Updated 12/14/24 @ 10:21 by Arnie Red LPN) Smoking and tobacco/nicotine status: never used tobacco/nicotine Quit status (tobacco/nicotine): has quit using Year quit tobacco: 2006 yrs Former quit date comment: 2pp x 10 years Second hand smoke exposure: No Alcohol intake: former Year of sobriety/quit date alcohol: 2020 Substance/Drug Use: never Current occupational status: employed Physical Exam Const: COMMON NORMALS: no acute distress, patient oriented x3 and alert Neck/C-Spine: COMMON NORMALS: full ROM, no lymphadenopathy, supple and no meningeal signs CERVICAL SPINE: No Cervical spine tenderness and Yes Paracervical muscle tenderness Resp: COMMON NORMALS: normal respiratory effort and clear to auscultation bilaterally AUSCULTATION: clear to auscultation bilaterally Cardio: COMMON NORMALS: regular rate and regular rhythm RATE: regular rate RHYTHM: regular rhythm Neuro: COMMON NORMALS: patient oriented x3, CN's II-XII intact bilaterally, moves all extremities, no focal motor deficits and no sensory deficits noted SENSORIUM/ORIENTATION: Yes alert MENINGEAL SIGNS: Yes no meningeal signs Psych: COMMON NORMALS: mental status grossly normal, Normal thought process present, normal affect and speech normal SPEECH: Yes normal speech THOUGHT PROCESS: Normal thought process present Skin: COMMON NORMALS: no rashes or lesions noted and turgor normal GENERAL SKIN EXAM: no rashes or lesions noted and turgor normal Course Vital Signs: Vital signs: Vital Signs Temperature 97.5 F L 02/18/25 13:31 Pulse Rate 62 02/18/25 16:19 Respiratory Rate 16 02/18/25 13:31 Blood Pressure 102/54 02/18/25 16:19 Pulse Oximetry 97 02/18/25 16:19 Oxygen Delivery Me thod Room Air 02/18/25 16:00 MDM - Neck Pain/Injury Medical Decision Making Patient's labs were reviewed and shows severe acute kidney injury and dehydration. Patient was recommended admission however he declined. Patient also declined any imaging of his neck. Patient did stay and received 2 L of fluids which he agreed to. He is feeling significantly better. I recommended he follow-up with his primary care provider tomorrow. Patient was stable upon leaving the hospital. Lab Data 02/18/25 13:52 02/18/25 13:52 Laboratory Results WBC 8.92 10^3/uL (3.29-11.43) 02/18/25 13:52 RBC 6.12 10^6/uL (3.85-5.65) H 02/18/25 13:52 Hgb 15.80 g/dL (11.27-16.99) 02/18/25 13:52 Hct 50.6 % (37-53) 02/18/25 13:52 MCV 82.7 fl (82-101) 02/18/25 13:52 MCH 25.8 pg (27-33) L 02/18/25 13:52 MCHC 31.2 g/dL (30-55) 02/18/25 13:52 RDW 16.6 % (12.1-15.1) H 02/18/25 13:52 Plt Count 348 10^3/cmm (157-399) 02/18/25 13:52 MPV 8.9 fL (7.4-10.4) 02/18/25 13:52 Neut % (Auto) 58.6 % 02/18/25 13:52 Lymph % (Auto) 27.9 % 02/18/25 13:52 [place] % (Auto) 7.2 % 02/18/25 13:52 Eos % (Auto) 4.8 % 02/18/25 13:52 Baso % (Auto) 0.9 % 02/18/25 13:52 Neut # (Auto) 5.23 10^3/uL (1.8-7.7) 02/18/25 13:52 Lymph # (Auto) 2.5 10^3/uL (0.8-4.8) 02/18/25 13:52 [place] # (Auto) 0.6 10^3/uL (0.2-0.9) 02/18/25 13:52 Eos # (Auto) 0.4 10^3/uL (0.0-0.8) 02/18/25 13:52 Baso # (Auto) 0.1 10^3/uL (0.0-0.1) 02/18/25 13:52 Nucleated RBC % (auto) 0 % 02/18/25 13:52 Nucleated RBCs # 0.0 /100WBC 02/18/25 13:52 Sodium 133 mmol/L (136-145) L 02/18/25 13:52 Potassium 6.2 mmol/L (3.5-5.1) H 02/18/25 13:52 Chloride 95 mmol/L (98-107) L 02/18/25 13:52 Carbon Dioxide 22 mmol/L (22-29) 02/18/25 13:52 Anion Gap 22.2 (5-19) H 02/18/25 13:52 BUN 43 mg/dL (6-20) H 02/18/25 13:52 Creatinine 4.4 mg/dL (0.7-1.2) H 02/18/25 13:52 GFR Calculation 14.0 mL/min (90-130) L 02/18/25 13:52 Glucose 100 mg/dL (65-115) 02/18/25 13:52 Calculated Osmolality 287 mOsm/kg (285-295) 02/18/25 13:52 Calcium 10.1 mg/dL (8.5-10.5) 02/18/25 13:52 Total Bilirubin 0.5 mg/dL (0.15-1.2) 02/18/25 13:52 AST 24 U/L (0-40) 02/18/25 13:52 ALT 31 U/L (0-41) 02/18/25 13:52 Alkaline Phosphatase 94 U/L (40-130) 02/18/25 13:52 Total Protein 8.5 g/dL (6.6-8.7) 02/18/25 13:52 Albumin 4.7 g/dL (3.5-5.2) 02/18/25 13:52 Globulin 3.8 g/dL (1.3-4.6) 02/18/25 13:52 No radiology studies performed this visit Discharge Plan Discharge Patient Disposition: Left Against Medical Advice Clinical Impression: Acute kidney injury, Dehydration, Strain of neck muscle Condition: Stable Prescriptions: No Action famotidine 20 mg tablet 20 mg PO .qnightly Qty: 90 1RF hydrochlorothiazide 25 mg tablet 25 mg PO QAM Qty: 90 1RF albuterol sulfate 90 mcg/actuation HFA aerosol inhaler 2 puff inhalation Q4H PRN (Reason: shortness of breath or wheezing) 90 Days Qty: 42.5 1RF montelukast 10 mg tablet 10 mg PO DAILY Qty: 90 1RF potassium chloride 20 mEq tablet extended release 20 meq PO DAILY Qty: 90 3RF bupropion HCl [Wellbutrin XL] 300 mg tablet extended release 24 hr 300 mg PO QAM Qty: 30 11RF buspirone 10 mg tablet 20 mg PO TID Qty: 180 11RF hydroxyzine HCl 50 mg tablet 50 mg PO QID PRN (Reason: anxiety/insomnia) Qty: 120 11RF levothyroxine [Levo-T] 175 mcg tablet 175 mcg PO DAILY Qty: 90 1RF tramadol 50 mg tablet 50 mg PO TID PRN (Reason: pain) Qty: 90 0RF Rx Instructions: Refill on or after 30 day intervals propranolol 20 mg tablet 20 mg PO BID PRN (Reason: anxiety) Qty: 60 2RF gabapentin 600 mg tablet 600 mg PO TID loratadine 10 mg Tablet 10 mg PO DAILY PRN (Reason: allergies) sertraline [Zoloft] 100 mg tablet 200 mg PO QAM lisinopril 10 mg tablet 10 mg PO DAILY mirtazapine 15 mg tablet 15 mg PO BEDTIME budesonide-formoterol [Symbicort] 80-4.5 mcg/actuation HFA aerosol inhaler 2 puff inhalation BID PRN (Reason: breathing) Discharge Orders: Discharge ED (Routine); Ordered 02/18/25 Ordered By: James York Referrals: Robin Adams MD [Primary Care Provider, Family Practice] Discharge Diet: Usual diet Discharge Activity: Increase activity as tolerated Patient Instructions: Dehydration (ED), Acute Kidney Injury (DC) Activity Restrictions/Additional Instructions: Please be sure you are drinking plenty of fluids. Please follow-up with your primary care provider tomorrow. Print Language: Frisian Coding Level of Care Code ED Director Medical Writing for Bryce Segal
[2025-02-18 14:21] LABS: Basophils # 0.1 10^3/uL (0.0-0.1); Basophils % 0.9 %; Eosinophils # 0.4 10^3/uL (0.0-0.8); Eosinophils % 4.8 %; Hematocrit 50.6 % (37-53); Lymphocytes # 2.5 10^3/uL (0.8-4.8); Lymphocytes % 27.9 %; Mean Corpuscular HGB Conc 31.2 g/dL (30-55); Mean Corpuscular Hemoglobin 25.8 pg (27-33); Mean Corpuscular Volume 82.7 fl (82-101); Mean Platelet Volume 8.9 fL (7.4-10.4); Monocytes # 0.6 10^3/uL (0.2-0.9); Monocytes % 7.2 %; Neutrophils # 5.23 10^3/uL (1.8-7.7); Neutrophils % 58.6 %; Nucleated Red Blood Cells % 0 %; Platelet Count 348 10^3/cmm (157-399); Red Blood Count 6.12 10^6/uL (3.85-5.65); Red Cell Distribution Width 16.6 % (12.1-15.1); White Blood Count 8.92 10^3/uL (3.29-11.43)
[2025-02-18] MEDS: sodium chloride 0.9% 1,000 ML 999 ML IV ×2 (14:26→14:49)
[2025-02-18] MEDS: ketorolac 30 mg/mL INJ 15 MG IVP (14:28)
[2025-02-18 14:34] LABS: Alanine Aminotransferase 31 U/L (0-41); Albumin Level 4.7 g/dL (3.5-5.2); Anion Gap 22.2 (5-19); Aspartate Amino Transferase 24 U/L (0-40); Blood Urea Nitrogen 43 mg/dL (6-20); Calcium 10.1 mg/dL (8.5-10.5); Carbon Dioxide 22 mmol/L (22-29); Chloride 95 mmol/L (98-107); Creatinine Clr Calc Pharmacy 26.9805; Globulin 3.8 g/dL (1.3-4.6); Glucose 100 mg/dL (65-115); Osmolality Calculated 287 mOsm/kg (285-295); Potassium 6.2 mmol/L (3.5-5.1); Sodium 133 mmol/L (136-145); Total Bilirubin 0.5 mg/dL (0.15-1.2); Total Protein 8.5 g/dL (6.6-8.7)
[2025-02-18 14:44] LABS: Alkaline Phosphatase 94 U/L (40-130)
[2025-02-18 15:00] VITALS: PULSE 62; O2SAT 100
[2025-02-18 16:00] VITALS: BP 100/50; PULSE 61; O2SAT 99
[2025-02-18 16:19] VITALS: BP 102/54; PULSE 62; O2SAT 97
== END 2025-02-18 16:20 | disposition left against medical advice (07) ==
PROVIDERS: Emergency Medicine; Emergency Provider Student in an Organized Health Care Education/Training Program; PCP Family Medicine
DX: S16.1XXA Strain of muscle, fascia and tendon at neck level, initial encounter (principal); E86.0 Dehydration; Z87.891 Personal history of nicotine dependence; I12.9 Hypertensive chronic kidney disease with stage 1 through stage 4 chronic kidney disease, or unspecified chronic kidney disease; N18.31 Chronic kidney disease, stage 3a; N17.9 Acute kidney failure, unspecified; X58.XXXA Exposure to other specified factors, initial encounter
CPT/HCPCS: 36415; 80053; 85025; 93005; 96361; 96374; 99284; J1885; J7030

== ENCOUNTER → 2025-06-07 09:50 | Outpatient (BNVA) | payer MEDICAID, SELFPAY | PROVIDERS: PCP Family Medicine; Visit Provider Family Medicine | DX: N18.9 Chronic kidney disease, unspecified (principal); E03.9 Hypothyroidism, unspecified | CPT/HCPCS: 80053; 83036; 84439; 84443 ==

== ENCOUNTER → 2025-08-02 11:47 | Outpatient (BNVA) | payer MEDICAID, SELFPAY | PROVIDERS: PCP Family Medicine; Visit Provider Family Medicine | DX: N18.31 Chronic kidney disease, stage 3a (principal); E03.9 Hypothyroidism, unspecified | CPT/HCPCS: 80053; 83036; 84439; 84443 ==